=== PATIENT | female | born 1970 | race American Indian/Alaskan Native ===

== ENCOUNTER 2017-03-24 09:17 | Outpatient (CLI) | payer OTHER ==
--- NOTE | 2017-03-24 14:51 | Mammography Report ---
BILATERAL DIGITAL SCREENING MAMMOGRAM with CAD: 03/24/17 09:17:00 CLINICAL: Routine screening. Status post bilateral reduction mammoplasty in 2011 COMPARISON:12/18/15 FINDINGS: The breasts are mostly fatty a few bilateral central posterior residual fibroglandular densities. Stable bilateral scar with benign oil cysts. Bilateral benign calcifications.. No mass, architectural distortion or suspicious calcifications. IMPRESSION: No mammographic evidence of malignancy. BI-RADS CATEGORY: 2 -- Benign RECOMMENDATION: Routine mammographic screening in one year. COMMENT: Patient follow-up letters are generated by our [employer] application.
== END 2017-03-24 09:18 | disposition home or self-care (01) ==
LOC: SPVWC 09:17
PROVIDERS: ATTEND Obstetrics & Gynecology
DX: Z12.31 Encounter for screening mammogram for malignant neoplasm of breast (principal)
CPT/HCPCS: 77067; G0202

== ENCOUNTER 2017-10-12 06:16 | Observation (INO) | payer BC, OTHER ==
[2017-10-11 09:48] LABS: Basophils % (Auto) 0.7 % (0.0-1.8); Eosinophils # (Auto) 0.1 K/mm3 (0.0-0.4); Eosinophils % (Auto) 2.9 % (0.0-4.3); Hematocrit 35.4 % (30.3-42.9); Hemoglobin 11.3 gm/dl (10.1-14.3); Lymphocytes # (Auto) 2.3 K/mm3 (1.2-5.4); Lymphocytes % (Auto) 49.5 % (13.4-35.0); Mean Corpuscular HGB Conc 32 % (30-34); Mean Corpuscular Volume 80 fl (79-97); Monocytes # (Auto) 0.3 K/mm3 (0.0-0.8); Monocytes % (Auto) 6.3 % (0.0-7.3); Platelet Count 224 K/mm3 (140-440); Red Blood Count 4.44 M/mm3 (3.65-5.03); Red Cell Distribution Width 13.7 % (13.2-15.2)
[2017-10-11 09:50] LABS: Mean Corpuscular Hemoglobin 25 pg (28-32)
--- NOTE | 2017-10-11 10:27 | Anesthesia Consultation ---
Anesthesia Consult and Med Hx Date of service: 10/11/17 - Airway Anesthetic Teeth Evaluation: Good ROM Head & Neck: Adequate Mental/Hyoid Distance: Adequate Mallampati Class: Class II Intubation Access Assessment: Probably Good - Pulmonary Exam CTA: Yes - Cardiac Exam Cardiac Exam: RRR - Pre-Operative Health Status ASA Pre-Surgery Classification: ASA2 Proposed Anesthetic Plan: General - Pulmonary Hx Sleep Apnea: Yes (Recently diagnosed, does not have CPAP yet) - Central Nervous System Hx Psychiatric Problems: No - Other Systems Hx Cancer: No
--- NOTE | 2017-10-11 18:56 | History and Physical Report ---
History of Present Illness Date of examination: 09/30/17 Chief complaint: Excessive and frequent menstruation with irregular cycle History of present illness: Past History : 2 Term Births: 2 Living Children: 2 Para: 2 # 1 Comments: Svdx2 [employer] History Operations: LEEP (2008) Breast Reduction: Abnormal PAP: positive Infection History Hx of STD: HSV Active Medications (reviewed today): IBUPROFEN 800 MG ORAL TABLET (IBUPROFEN) 1 po TID (PRN) OXYCODONE-ACETAMINOPHEN 5-325 MG ORAL TABLET (OXYCODONE-ACETAMINOPHEN) 1-2po q6h prn Current Allergies (reviewed today): No known allergies Past Medical History: Reviewed history from 05/13/2017 and no changes required: Hyperlipidemia sleep apnea Past Surgical History: Reviewed history from 10/11/2014 and no changes required: LEEP (2008) Breast Reduction: Family History Summary: Reviewed history Last on 05/13/2017 and no changes required:10/11/2017 Sister (full) - Has Family History of Diabetes - Entered On: 10/23/2014 Other family member - Has No Family History of Biliary Tract Cancer - Entered On : 11/15/2015 Other family member - Has No Family History of Breast Cancer - Entered On: 2015 Other family member - Has No Family History of Brain Cancer - Entered On: 2015 Other family member - Has No Family History of Colon Cancer - Entered On: 2015 Other family member - Has No Family History of DVT/PE on OCP - Entered On: 2015 Other family member - Has No Family History of Kidney/Urinary Tract Cancer - Entered On: 11/15/2015 Other family member - Has No Family History of Ovarvian Cancer - Entered On: 11/14 Other family member - Has No Family History of Pancreatic Cancer - Entered On: Other family member - Has No Family History of Stomach Cancer - Entered On: 2015 Other family member - Has No Family History of Small Bowel Cancer - Entered On: 11/15/2015 Other family member - Has No Family History of Uterine Cancer - Entered On: 2015 General Comments - FH: No Family History of Breast Cancer No Family History of Colon Cancer No Family History of Ovarvian Cancer No Family History of DVT/PE on OCP Social History: Reviewed history from 12/23/2016 and no changes required: Patient is Smoking History: Patient has never smoked. Review of Systems General Denies fever, chills, sweats, anorexia, fatigue, weakness, malaise, weight loss and sleep disorder. Complains of menorrhagia and abnormal vaginal bleeding. Denies vaginal discharge, incontinence, dysuria, hematuria, urinary frequency, amenorrhea, pelvic pain, genital sores, decreased libido, painful periods, painful sex, urinary urgency, hot flashes, vaginal dryness, vaginal itching and vaginal odor. CV Denies chest pains, palpitations, syncope, dyspnea on exertion, orthopnea, PND and peripheral edema. Resp Denies cough, dyspnea at rest, excessive sputum, hemoptysis, wheezing and pleurisy. GI Denies nausea, vomiting, diarrhea, constipation, change in bowel habits, abdominal pain, melena, hematochezia, jaundice, gas/bloating, indigestion/ heartburn, dysphagia and odynophagia. Endo Denies cold intolerance, heat intolerance, polydipsia, polyphagia, polyuria and unusual weight change. Breast Denies left breast lump, right breast lump, nipple discharge, bloody discharge from nipple, breast pain, abnormal mammogram and breast enlargement. MS Denies back pain, joint pain, joint swelling, muscle cramps, muscle weakness, stiffness, arthritis, sciatica, restless legs, leg pain at night and leg pain with exertion. Derm Denies rash, itching, dryness and suspicious lesions. Neuro Denies paralysis, paresthesias, headache, seizures, tremors, vertigo, transient blindness, frequent falls, frequent headaches and difficulty walking. Psych Denies depression, anxiety, irritability and mood swings. Eyes Denies blurring, diplopia, irritation, discharge, vision loss, eye pain and photophobia. ENT Denies earache, ear discharge, tinnitus, decreased hearing, nasal congestion, nosebleeds, sore throat and hoarseness. Allergy Denies urticaria, allergic rash, hay fever and recurrent infections. Heme Denies abnormal bruising, bleeding and enlarged lymph nodes. Physical Exam Appearance: well developed, well nourished, no acute distress Other Exams Lungs: no rales, rhonchi, or wheezes Heart: S1, S2, no murmur, rub, or gallop Abdomen: soft, non-tender, no masses, obese Skin: no ulcers, xanthomas Extremities: normal alignment, no joint enlargement, crepitus, masses or tenderness; normal tone and strength Genitourinary Exam Vulva: normal, no lesions or discharge Urethral meatus: normal size and location, no lesions or discharge Urethra: no discharge Bladder: no cystocele Vagina: normal appearance, no lesions. No evidence of cystocele or rectocele. Moderate blood in vagina Cervix: retracted to vagina Uterus: unable to palpate Adnexa: unable to palpate due to obesity Impression & Recommendations: Problem # 1: Excessive and frequent menstruation with irregular cycle (ICD- 626.6) (QHZ75-W20.1) Diagnosis explained to patient . Questions answered. Discussed with patient various medical and surgical therapies common for treatment: Hormonal/medical therapy,endometrial ablation or hysterectomy. She desires to proceed with hysterectomy Consent reviewed and signed . Possible laparoscopy or laparotomy explained to patient. The risks and alternatives for this surgery were reviewed with the patient. She was informed of possible bleeding, infection, injury to bowel, bladder, ureters or other adjacent organs. she desires ovarian conservative. She was informed she may require surgery later to have her ovaries removed for a benign or mailgnant condition. She was informed she will not be able to get after her uterus has been removed. The patient was instructed/informed the following: The normal length of hospital stay for this procedure. Nothing to eat or drink after midnight the evening prior to surgery. Clear liquids the day before surgery. Fleets enema the day prior to surgery. Pre-op instruction sheets given. Wound care instructions given. Infection precautions reviewed, patient to call for any signs or symptoms of infection. The usual discomforts associated with this procedure were detailed. Proper use of pain medicines was reviewed. Patient was given ample opportunity to have all her questions answered before signing informed consent. Problem # 2: Body Mass Index 45.0-49.9, adult (ICD-V85.42) (GJA86-P98.42) Medications Added to Medication List This Visit: 1) Ibuprofen 800 Mg Oral Tablet (Ibuprofen) .... 1 po tid (prn) 2) Oxycodone-acetaminophen 5-325 Mg Oral Tablet (Oxycodone-acetaminophen) .... 1-2po q6h prn Prescriptions: IBUPROFEN 800 MG ORAL TABLET (IBUPROFEN) 1 po TID (PRN) #30 x 1 Entered and Authorized by: Marta Phillips MD Method used: Print then Give to Patient RxID: [id number] OXYCODONE-ACETAMINOPHEN 5-325 MG ORAL TABLET (OXYCODONE-ACETAMINOPHEN) 1-2po q6h prn #30 x 0 Entered and Authorized by: Marta Phillips MD Method used: Print then Give to Patient RxID: [id number] Medications and Allergies Allergies Allergy/AdvReac Type Severity Reaction Status Date / Time No Known Allergies Allergy Unverified 10/07/17 16:55 Home Medications Medication Instructions Recorded Confirmed Last Taken Type No Known Home Medications [No 10/07/17 10/07/17 Unknown History Reported Home Medications] Active Meds: Active Medications Lactated Ringer's (Lactated Ringers) 1,000 mls @ 100 mls/hr IV DIRECT VALENTIN Stop: 10/12/17 23:59 Cefazolin Sodium (Ancef/Sterile Water 2 Gm/20 Ml) 2 gm in 20 mls @ 80 mls/hr IV PREOP VALENTIN; Protocol Cefazolin Sodium (Ancef/Ns 1 Gm/50 Ml) 1 gm in 50 mls @ 100 mls/hr IV PREOP NR ; Protocol Midazolam HCl (Versed) 2 mg IV PREOP NR Stop: 10/12/17 23:59 Exam Vital Signs Temp Pulse Resp BP 98.1 F 64 18 118/84 10/11/17 09:25 10/11/17 09:25 10/11/17 09:25 10/11/17 09:25 Results - Labs 10/11/17 09:30 Abnormal lab results 10/11/17 Range/Units 09:30 MCH 25 L (28-32) pg Lymph % (Auto) 49.5 H (13.4-35.0) % Assessment and Plan - Patient Problems (1) Excessive and frequent menstruation with irregular cycle Status: Acute (2) BMI 45.0-49.9, adult Status: Chronic
[~2017-10-12 06:16] MED LIST: ANCEF/NS 1 GM/50 ML 1 GM/50 ML BAG IV NR; ANCEF/STERILE WATER 2 GM/20 ML 2 GM/20 ML SYRINGE IV NR; ANCEF/STERILE WATER 2 GM/20 ML 2 GM/20 ML SYRINGE IV SCH; LACTATED RINGERS 1,000 ML IV SCH; VERSED IV NR; ceFAZolin 1 GM in NACL 0.9% 20 ML IV SCH
[2017-10-12] MEDS ORDERED: NACL BACTERIOSTATIC INFILTRATI ONE (06:30)
[2017-10-12] MEDS ORDERED: SUBLIMAZE ONE ×2 (07:17→07:32)
[2017-10-12] MEDS ORDERED: XYLOCAINE MPF 2% ONE (07:17)
[2017-10-12] MEDS ORDERED: ZEMURON IV ONE (07:17)
[2017-10-12] MEDS ORDERED: DIPRIVAN 10 MG/ML IV ONE (07:18)
[2017-10-12] MEDS ORDERED: PEPCID IV ONE (07:32)
[2017-10-12] MEDS ORDERED: DECADRON ONE (07:33)
[2017-10-12] MEDS ORDERED: NEOSPORIN GU IR ONE ×2 (07:40→09:36)
[2017-10-12] MEDS ORDERED: MARCAINE 0.5% 30 ML INFILTRATI ONE (07:48)
[2017-10-12] MEDS ORDERED: ZOFRAN IV PRN ×2 (08:38→13:40)
[2017-10-12] MEDS ORDERED: DILAUDID IV PRN (08:38)
--- NOTE | 2017-10-12 08:38 | Anesthesia Day of Surgery ---
Anesthesia Day of Surgery - Day of Surgery Patient Examined: Yes Patient H&P Reviewed: Yes Patient is NPO: Yes
[2017-10-12] MEDS ORDERED: NACL 0.9% IR ONE (09:36)
[2017-10-12] MEDS ORDERED: ROBINUL ONE (10:14)
[2017-10-12] MEDS ORDERED: NEOSTIGMINE ONE (10:14)
[2017-10-12] MEDS ORDERED: PROVENTIL IH ONE (10:50)
[2017-10-12] MEDS ORDERED: PROVENTIL IH NR (11:30)
[2017-10-12] MEDS ORDERED: REGLAN PO PRN (13:40)
[2017-10-12] MEDS ORDERED: REGLAN IV PRN (13:40)
[2017-10-12] MEDS ORDERED: TYLENOL PR PRN (13:40)
[2017-10-12] MEDS ORDERED: NARCAN 0.4 MG/1 ML IV PRN (13:40)
[2017-10-12] MEDS ORDERED: ANCEF/NS 1 GM/50 ML 1 GM/50 ML BAG IV SCH (13:40)
[2017-10-12] MEDS ORDERED: ZOFRAN PO PRN (13:40)
[2017-10-12] MEDS ORDERED: TYLENOL PO PRN ×2 (14:00)
[2017-10-12] MEDS: TYLENOL PO SCH (14:20)
--- NOTE | 2017-10-12 14:29 | Operative Report ---
Operative Report Operative Report: Date: 10/12/2017 Preoperative diagnosis: 1. Excessive and frequent menstruation with irregular cycle 2. Morbid obesity 3. Sleep apnea Postoperative diagnosis: 1. Excessive and frequent menstruation with irregular cycle 2. Morbid obesity 3. Sleep apnea 4. Right infundibular pelvic ligament varicosities. 5. Abdominal adhesions Procedure: 1. Robotic-assisted laparoscopic total hysterectomy with bilateral salpingo-oophorectomy Surgeon: Marta Phillips MD Electrical Line Splicer: Katarzyna Tuttle Anesthesiologist: Ty SORTO Anesthesia: General endotracheal anesthesia EBL: Approximately 50 mL Findings: Exam under anesthesia was unremarkable. Cervix was flush to the vagina at the apex. Uterus was sounded to 8 cm. Right infundibular pelvic ligament varicosities. Midline Abdominal adhesions. Grossly normal fallopian tubes and ovaries and uterus Procedure: Patient was taken to the OR and placed in the supine position. General anesthesia was induced and an oral gastric tube was placed. Her neck and head were placed on foam support. Foam eye protection with goggles were secured in place. Then foam face protection was placed and secured. Foam shoulder pads were then positioned on her shoulders for Trendelenburg positioning. She was then placed in dorsolithotomy position. Exam under anesthesia as above. The abdomen and vagina were then prepped and draped in the usual sterile fashion. Timeout was performed. A Daivs catheter was inserted into the bladder with drainage of clear yellow urine. The operative speculum was introduced into the vagina and the anterior lip of the cervix was grasped with single-toothed tenaculum. The uterus was sounded to 8 cm. The cervix was progressively dilated to allow the medium V care uterine manipulator. The bulb of the manipulator was inflated and the speculum and tenaculum were removed. The cup of the manipulator was placed around the cervix and the blue occluder of the manipulator was properly positioned in the vagina. A laparotomy sponge that was saturated with a solution of polymyxin and saline was placed in the vagina to ensure pneumoperitoneum. Sterile gloves were placed and attention was turned to the abdomen. A 10 mm vertical supraumbilical incision was made approximately 10 cm superior to the elevated fundus of the uterus. A 12 mm trocar with the laparoscope and camera attached was introduced through this incision under direct visualization. The abdomen was insufflated. No obvious bowel, bladder, ureteral, or major vascular injury was noted. The patient was then placed in steep Trendelenburg position and the following trochars were placed under direct visualization: 8 mm robotic trochars were placed through incisions made in the bilateral midclavicular lower abdominal region approximately 10 cm lateral and approximately 2 cm below the midline incision, and a 5 mm trocar was placed through an incision made in the right lower lateral pelvis approximately 2 cm superior to the iliac crest. The 10 mm laparoscope was then replaced by a 5 mm laparoscope that was placed through the 5 millimeter lateral trocar. The 12 mm trocar was then removed in the Fredrick Perez fascial closure device was placed through the incision and a 0 Vicryl was placed through the fascia. Once the suture was secured the 12 mm trocar was reintroduced. Once the trochars were in the appropriate positions, he adhesion was released from the anterior abdominal wall. The da Colette robot system was engaged. The EndoShears and bipolar device was placed through the 8 mm trochars and positioned then attention was turned to the console. The uterus was elevated, then the utero-ovarian ligaments were clamped. cauterized and incised bilaterally using 30 W of energy. Then the round ligaments were clamped, cauterized and incised bilaterally. The anterior leaf of the broad ligament was elevated and careful blunt and sharp dissection the bladder flap was created and dissected away from the lower uterine segment and cervix. The posterior leaf of the broad ligament was dissected away from the uterine vessels. The cup of the uterine manipulator was palpated both anteriorly and posteriorly. Course of the ureters was visualized and was confirmed to be away from the operative field. The uterine vessels were then clamped and cauterized bilaterally. Blanching of the uterus was then noted. Attention was again turned to the anterior lower uterine segment and the bladder was confirmed to be away from the operative field. Then attention was turned again to the posterior where the cup of the manipulator was palpated and a colpotomy was performed down to the cup. The incision was extended in the lateral position the uterine vessels that were again clamped and cauterized and incised. Continuing along the cup of the manipulator in a circumferential manner the colpotomy was completed. The uterus and cervix were then removed through the vaginal incision. The pelvis was irrigated with warm normal saline. A moist laparotomy sponge was placed in the vagina to maintain pneumoperitoneum. Attention was turned to the adnexa. The right fallopian tube was elevated and the ureter was visualized to be away from the operative field. Then the infundibulopelvic ligament was clamped cauterized and incised. Then the remainder of the ovary and tube were excised and removed through the vagina and placed in a separate container to go to pathology. The same procedure was performed on the left tube and ovary. The pelvis was again irrigated with warm normal saline. Once hemostasis was noted, the vagina cuff was reapproximated using V LOC 180 suture in a simple running stitch. Then a J stitch was performed to secure the suture. Again the pelvis was copiously irrigated with polymixin in warm normal saline. The laparotomy sponge was removed from the vagina. No bowel, bladder, ureteral or major vascular injury was noted. Once hemostasis was noted, Kaila was applied to the operative field to ensure hemostasis. Then Interceed was applied to the operative field to decrease formation of adhesions. Again hemostasis was noted. Then the instruments were removed, the robot was disengaged. There was bleeding noted on the midline supraumbilical incision at the beginning of the procedure therefore once the robot was disengaged and the 5 mm laparoscope was introduced through the lateral port to observe the midline incision. The 12 mm trocar was removed and the incision was secured with the previously placed 0 Vicryl suture. The abdomen was allowed to desufflate to ensure hemostasis. Once hemostasis was noted, the patient was taken out of Trendelenburg position, the abdomen was desufflated, the remaining trochars were removed. Incisions were reapproximated using 4-0 Vicryl in a subcuticular manner. Surgiseal was placed over the incisions. The vagina was then inspected, no bleeding was noted and clear yellow urine was draining into the Davis bag from the bladder at the end of the procedure. Patient was taken to recovery room in stable condition.
[2017-10-12] MEDS: NACL 0.9% 1000 ML 1,000 ML IV SCH ×2 (15:47→23:16)
--- NOTE | 2017-10-12 16:06 | Post Anesthesia Evaluation ---
- Post Anesthesia Evaluation Patient Participated: Yes Airway Patent: Yes Stable Respiratory Function: Yes Nausea/Vomiting: No Temp > 96.8F: Yes Pain Manageable: Yes Adequeate Hydration: Yes Anesthesia Complications: No
[2017-10-12] MEDS: TORADOL IV SCH ×2 (17:09→23:15)
[2017-10-12] MEDS: ceFAZolin 1 GM in NACL 0.9% 20 ML IV SCH (17:10)
--- NOTE | 2017-10-12 19:58 | Progress Note ---
Assessment and Plan - Patient Problems (1) History of robot-assisted laparoscopic hysterectomy Current Visit: Yes Status: Acute Plan to address problem: DOS, Findings and procedure explained. She was informed she appears to be quite sensitive to narcotics. Pain management discussed. Questions encouarged and answered, she voiced understanding and agrees with plan of care (2) Excessive and frequent menstruation with irregular cycle Current Visit: No Status: Acute (3) BMI 45.0-49.9, adult Current Visit: No Status: Chronic Subjective Date of service: 10/12/17 Patient Reports: Negative: no new complaints Objective Vital Signs - 12hr 10/12/17 10/12/17 10/12/17 07:55 08:00 10:43 Temperature 98.0 F Pulse Rate 58 L 58 L 57 L Respiratory 13 13 14 Rate Blood Pressure 121/85 124/84 117/66 Blood Pressure [Right] O2 Sat by Pulse 99 99 100 Oximetry 10/12/17 10/12/17 10/12/17 10:50 10:55 11:00 Temperature Pulse Rate 58 L 58 L 58 L Respiratory 14 14 15 Rate Blood Pressure 133/68 114/70 123/73 Blood Pressure [Right] O2 Sat by Pulse 100 100 100 Oximetry 10/12/17 10/12/17 10/12/17 11:15 11:30 11:45 Temperature 97.5 F L Pulse Rate 61 62 77 Respiratory 15 14 15 Rate Blood Pressure 141/80 125/72 131/71 Blood Pressure [Right] O2 Sat by Pulse 100 100 99 Oximetry 10/12/17 10/12/17 10/12/17 12:00 12:15 12:30 Temperature Pulse Rate 75 77 77 Respiratory 14 14 14 Rate Blood Pressure 112/69 114/82 131/74 Blood Pressure [Right] O2 Sat by Pulse 100 99 100 Oximetry 10/12/17 10/12/17 10/12/17 12:45 14:20 15:20 Temperature 97.4 F L Pulse Rate 77 Respiratory 15 20 16 Rate Blood Pressure 121/75 Blood Pressure [Right] O2 Sat by Pulse 100 Oximetry 10/12/17 10/12/17 10/12/17 15:54 17:09 17:39 Temperature 98.2 F Pulse Rate 89 Respiratory 18 16 16 Rate Blood Pressure Blood Pressure 139/95 [Right] O2 Sat by Pulse Oximetry 10/12/17 19:20 Temperature 98.8 F Pulse Rate 69 Respiratory 20 Rate Blood Pressure 138/86 Blood Pressure [Right] O2 Sat by Pulse 99 Oximetry - General physical appearance no distress (alert and appropriately responsive) - Respiratory normal expansion, normal respiratory effort - Abdomen soft, bowel sounds normal - Labs 10/11/17 09:30
[2017-10-13] MEDS: TYLENOL PO SCH ×2 (01:44→07:24)
[2017-10-13] MEDS: ceFAZolin 1 GM in NACL 0.9% 20 ML IV SCH (02:04)
[2017-10-13 05:51] LABS: Hematocrit 34.4 % (30.3-42.9); Hemoglobin 10.9 gm/dl (10.1-14.3)
[2017-10-13] MEDS: TORADOL IV SCH (07:54)
[2017-10-13] MEDS: NACL 0.9% 1000 ML 1,000 ML IV SCH (08:15)
[2017-10-13 09:34] VITALS: BP 124/82
--- NOTE | 2017-10-13 09:37 | Discharge Summary ---
Providers - Providers Date of Admission: 10/12/17 11:51 Date of discharge: 10/13/17 Attending physician: GIULIANA RICHMOND Primary care physician: ANANDA BECKMAN MD Hospitalization Reason for admission: see Op note Condition: Good Procedures: see Op note Hospital course: unremarkable Disposition: DC-01 TO HOME OR SELFCARE - Discharge Diagnoses (1) History of robot-assisted laparoscopic hysterectomy Status: Acute (2) Excessive and frequent menstruation with irregular cycle Status: Resolved (3) BMI 45.0-49.9, adult Status: Chronic Core Measure Documentation - Palliative Care Palliative Care/ Comfort Measures: Not Applicable - Core Measures Any of the following diagnoses?: none Exam - Constitutional Vitals: Temp Pulse Resp BP Pulse Ox 98.5 F 68 17 136/83 97 10/13/17 04:34 10/13/17 04:34 10/13/17 06:11 10/13/17 04:34 10/13/17 04:34 General appearance: Present: no acute distress - Neck Neck: Present: supple - Respiratory Respiratory effort: normal Respiratory: negative: CTA - Cardiovascular Rhythm: regular - Extremities Extremities: no ischemia, No edema (NT, negative Martinez) - Abdominal General gastrointestinal: Present: soft, non-distended, normal bowel sounds ( Incisions c/d/i, no s/s dehiscence) Female genitourinary: Present: deferred - Integumentary Integumentary: Present: clear, warm, dry - Psychiatric Psychiatric: appropriate mood/affect, intact judgment & insight, cooperative Plan Activity: other (No ssex, no driving, ambulate on your property ~1mile a day, use incentive spirometer every 1houor while awake) Weight Bearing Status: Full Weight Bearing Diet: low fat (Eat small meals frequently, drink ~130oz water a day, void every1 -2hours to keep bladder empty and avoid pressure on the vagina) Wound: open to air, keep clean and dry Special Instructions: no heavy lifting (>25#) Additional Instructions: Call your PCP for sleep apnea treatment immediately. Follow up with: GIULIANA RICHMOND MD [Staff Physician] - (As scheduled) ANANDA BECKMAN MD [Primary Care Provider] - 7 Days
[2017-10-13] MEDS ORDERED: PROTONIX IV SCH (10:00)
[2017-10-13] MEDS ORDERED: PERCOCET 5/325 PO PRN (10:54)
== END 2017-10-13 12:41 | disposition home or self-care (01) ==
LOC: OR 06:16 → 3B-SURG 11:51
PROVIDERS: ADMIT Obstetrics & Gynecology; ATTEND Obstetrics & Gynecology
DX: N92.1 Excessive and frequent menstruation with irregular cycle (principal); E66.01 Morbid (severe) obesity due to excess calories; Z68.42 Body mass index [BMI] 45.0-49.9, adult; G47.30 Sleep apnea, unspecified
CPT/HCPCS: 36415; 58552; 64450; 81025; 85014; 85018; 85025; 86850; 86900; 86901; 88305; 88307; 94660; 96374; 96375; 96376; A4217; C1765; C9113; G0378; J0690; J1100; J1170; J1885; J2250; J2704; J2710; J3010; J7030; J7120; S2900

== ENCOUNTER 2019-07-13 09:59 | Outpatient (CLI) | payer OTHER ==
--- NOTE | 2019-07-13 11:59 | Mammography Report ---
DIGITAL SCREENING MAMMOGRAM WITH CAD, 07/13/2019 INDICATION: Routine screening mammography. Status post bilateral reduction mammoplasty in 2011. TECHNIQUE: Digital bilateral 2D mammography was obtained in the craniocaudal and mediolateral obliq ue projections. This examination was interpreted with the benefit of Computer-Aided Detection analysi s. COMPARISON: 03/24/2017 FINDINGS: Breast Density: There are scattered areas of fibroglandular density. There is no evidence of dominant mass, suspicious calcifications or architectural distortion in eithe r breast. Bilateral benign scar with benign oil cysts and benign calcifications. IMPRESSION: No mammographic evidence of malignancy. Follow up recommendation: Routine yearly BI-RADS Category 2: Benign. A "normal" or negative report should not discourage follow up or biopsy of a clinically significant f inding. A written summary of these findings will be mailed to the patient. The patient will be entered into a mammography reporting system which will generate a reminder letter for the patient's next appointmen t at the appropriate interval. The [employer] recommends yearly mammograms starting at age 40 and continuing as l sergio as a woman is in good health. Breast MRI is recommended for women with an approximate 20-25% or greater lifetime risk of breast cancer, including women with a strong family history of breast or ova barby cancer or who have been treated for Hodgkin's disease. Signer Name: Memo Crisostomo MD Signed: 07/13/2019 11:55 AM Workstation Name: [id number]
== END 2019-07-13 10:00 | disposition home or self-care (01) ==
LOC: SPVWC 09:59
PROVIDERS: ATTEND Obstetrics & Gynecology
DX: Z12.31 Encounter for screening mammogram for malignant neoplasm of breast (principal)
CPT/HCPCS: 77067

== ENCOUNTER 2021-07-03 16:19 | Outpatient (CLI) | payer OTHER | END 2021-07-03 16:20 | disposition home or self-care (01) | LOC: SPVWC 16:19 | PROVIDERS: ATTEND Obstetrics & Gynecology | DX: Z12.31 Encounter for screening mammogram for malignant neoplasm of breast (principal) | CPT/HCPCS: 77067 ==

== ENCOUNTER 2021-08-07 14:25 | Outpatient (CLI) | payer OTHER ==
--- NOTE | 2021-08-07 16:08 | Ultrasound Report ---
ULTRASOUND BREAST LEFT LIMITED, 08/07/2021 CLINICAL INFORMATION / INDICATION: ABNORMAL MAMMOGRAM. TECHNIQUE: Targeted ultrasound evaluation was performed of the area of interest. COMPARISON: Recent mammogram 07/03/2021 FINDINGS: In the 1:00 location of the left breast, 9 cm from nipple, there is an oval cyst measuring 3.3 cm, a butting the chest wall. This is consistent with the abnormality identified on recent mammogram and ne eds no further evaluation, as it either represents a simple cyst or a benign oil cyst.. Other smaller areas of oil cysts and fat necrosis are seen in the left breast as well, consistent with findings on recent mammogram. IMPRESSION: Multiple oil cysts most likely related to reduction surgery. No significant finding. Follow up recommendation: Back to schedule. BI-RADS Category 2: BENIGN. A normal or "negative" report should not preclude biopsy or follow-up of a clinically suspicious find ing. Signer Name: Sabina Dietz MD Signed: 08/07/2021 4:04 PM Workstation Name: [employer]
== END 2021-08-07 14:26 | disposition home or self-care (01) ==
LOC: US 14:25
PROVIDERS: ATTEND Obstetrics & Gynecology
DX: N60.02 Solitary cyst of left breast (principal); R92.8 Other abnormal and inconclusive findings on diagnostic imaging of breast